=== PATIENT | female | born 1945 | race Caucasian/White ===

== ENCOUNTER 2016-09-18 16:48 | Emergency (ER) | payer MEDICARE, OTHER ==
[~2016-09-18] VITALS: Ht 167.6 cm; Wt 72.7 kg
[~2016-09-18 16:48] MED LIST: AMLO10TA3 PO; ASPI-628 PO; CHOL100043 PO; FAMO40TA72 PO; METO25TA6 PO; MULT-1018 PO; OMEG1CAP25 PO; OMEP20TA24 PO; Oxycodone Hcl PO; PARO20TA57 PO; SIMV40TA5 PO; TAMO10TA4 PO
[2016-09-18 16:56] VITALS: BP 125/79; PULSE 84; RESP 20; O2SAT 96
--- NOTE | 2016-09-18 18:01 | ED.REPORT ---
HPI-Trauma Minor / Fall Date of Service Sep 18, 2016 ED Provider: Dr. Giorgio Prieto D.O. A 71 year old female with a medical history including breast cancer, hypertension, and hyperlipidemia presents to the ED via EMS from [facility] after a mechanical ground level fall just prior to arrival while intoxicated on alcohol. She hit her head and face but did not lose consciousness. She denies abdominal pain or neck pain. The patient was in the ED after a similar fall in March 2016. The patient takes aspirin daily. She is a poor historian because she doesn't remember the whole incident. Nursing Notes Stated Complaint: GLF Chief Complaint: Head, Face, Neck Trauma Nursing Notes Reviewed: Yes Allergies: Coded Allergies: lisinopril (Verified Allergy, Unknown, angioedema, 05/31/14) sertraline (Verified Allergy, Unknown, diarrhea, 09/01/14) Scheduled Amlodipine (Amlodipine) 10 Mg Tablet 5 MG PO DAILY Aspirin (Aspir 81) 81 Mg Tablet. 81 MG PO DAILY Cholecalciferol (Vitamin D3) (Vitamin D) 1,000 Unit Tablet 1,000 UNIT PO DAILY Famotidine (Pepcid) 40 Mg Tablet 40 MG PO HS Metoprolol Tartrate (Metoprolol Tartrate) 25 Mg Tablet 25 MG PO BID Multivitamin (Multi Vitamin Daily) 1 Each Tablet 1 EACH PO DAILY Omeprazole Magnesium (Prilosec Otc) 20 Mg Tablet. 20 MG PO DAILY Paroxetine (Paxil) 20 Mg Tablet 20 MG PO DAILY Simvastatin (Simvastatin) 40 Mg Tablet 40 MG PO HS Tamoxifen Citrate (Tamoxifen Citrate) 10 Mg Tablet 20 MG PO DAILY Scheduled PRN ([Oxycodone Hcl]) 5 MG TABLET 5 MG PO Q4H PRN PRN For Pain Miscellaneous Medications [place]-3 Fatty Acids/Fish Oil ([place] 3 Fish Oil Softgel) 1 Each Capsule.dr 1 EACH PO General Time Seen by MD: 18:00 Chief Complaint Fall, Face injury, Head injury Hx Obtained From: Patient Arrived By: Ambulance Onset Occurred: Just prior to arrival Context of Onset: EtOH use Symptom Duration: Since onset Location: Face Head Quality: Painful Severity: Current: Moderate Severity: Maximum: Moderate Associated with: Denies: Abdominal pain, Fever, Loss of consciousness, Neck pain Pertinent Negative: Relieved by nothing Context: Immunizations Unknown Recent Healthcare: No recent doctor visit Similar Sx Previous: Yes Past Medical History Past Medical History Breast cancer ICU stay in [facility] with intubation attributed to severe allergic reaction to lisinopril and pneumonia (per pt) Ground level falls secondary to alcohol intoxication Hypertension Hyperlipidemia Past Surgical History None reported Smoking History Current Every Day Smoker, Light Tobacco Smoker Social History Other Social History: Lives in [facility] Ambulatory Status Independent Review of Systems Review of Systems Note: + Face pain Constitutional: Denies: Fever Respiratory: Denies: Non-productive cough, Shortness of breath Musculoskeletal: Denies: Neck pain Neurologic: Reports: Headache, Denies: Change LOC Complete sys rev & neg: except as marked. GI: Denies: Abdominal pain, Vomiting Physical Exam Initial Vital Signs Vital Signs (First) Date Time Temp Pulse Resp B/P Pulse Ox O2 Delivery O2 Flow Rate FiO2 09/18/16 16:56 36.7 84 20 125/79 96 Room Air Initial VS: Reviewed ENT: Mucous membranes moist (no septal hematoma noted.) Respiratory: Breath sounds normal, Clear to auscultation, No respiratory distress Cardiovascular: Regular rate & rhythm, Heart sounds normal Abdomen / GI: Soft, Non-tender Skin: Warm, Dry, No cyanosis Neurologic: Alert, Oriented, Nonfocal Psychiatric: Mood/affect normal, Behavior normal, Normal thought content General/Constitutional: Awake, Alert, Cooperative (Pleasant) Smells of alcohol Neck: Atraumatic, No swelling Neck / Muscle Tenderness: Positive: Midline tenderness mid ENT: Airway patent, Mucous membranes moist Ecchymosis and swelling around right eye and onto maxilla Upper Extremity / MS: Atraumatic, Inspection NL Lower Extremity / Pelvis / MS: Atraumatic, Inspection NL Interpretation & Diagnostics FACE CT NO CONTRAST: IMPRESSION: 1. Minimally displaced right nasal bone fracture. 2. Right preorbital/premaxillary soft tissue swelling. Dictated by: Radiologist Katherine Bowles M.D. on 09/18/2016 at 19:13 Lab Results Interpretation Result Diagram: 09/18/16 1904 09/18/16 190 Test 09/18/16 19:04 White Blood Count 6.3th/mm3 (3.8-10.1) Red Blood Count 3.68mil/mm3 (3.90-5.20) Hemoglobin 9.3g/dL (12.0-15.6) Hematocrit 29.9% (35.0-46.0) Mean Corpuscular Volume 81.3fL (81-100) Mean Corpuscular Hemoglobin 25.3pg (27.0-35.0) Mean Corpuscular Hemoglobin Concent 31.1% (32.0-37.0) Red Cell Distribution Width 22.9% (12.3-15.4) Platelet Count 280bil/L (150-400) Neutrophils (%) (Auto) 64.8% (40-74) Lymphocytes (%) (Auto) 21.6% (14-46) Monocytes (%) (Auto) 8.7% (4-12) Eosinophils (%) (Auto) 4.1% (0-5) Basophils (%) (Auto) 0.6% (0-3) Sodium Level 140mEq/L (134-144) Potassium Level 3.7mEq/L (3.5-5.2) Chloride Level 102mEq/L (97-108) Carbon Dioxide Level 20mmol/L (18-29) Blood Urea Nitrogen 23mg/dL (8-27) Creatinine 1.35mg/dL (0.57-1.00) Estimat Glomerular Filtration Rate 55mL/min (>59) Glucose Level 88mg/dL (60-99) Calcium Level 8.8mg/dL (8.5-10.1) Total Bilirubin 0.2mg/dL (0.0-1.2) Aspartate Amino Transf (AST/SGOT) 44U/L (0-50) Alanine Aminotransferase (ALT/SGPT) 20U/L (0-32) Alkaline Phosphatase 78U/L (25-165) Total Protein 6.7g/dL (6.4-8.4) Albumin 3.6g/dL (3.4-5.0) Alcohol, Quantitative 182mg/dL (0-10) CT Head Interpretation IMPRESSION: 1. No acute intracranial abnormalities. 2. Cerebral volume loss and chronic microvascular ischemic changes. Dictated by: Katherine Bowles M.D. on 09/18/2016 at 18:15 Study: Head CT no contrast Interpretation / Wet Read by: Interpret - Radiologist CT C-Spine Interpretation IMPRESSION: 1. No fractures or dislocation. 2. Discectomy and anterior fusion at C4-C7. 3. Degenerative disc disease and facet arthropathy in cervical spine. Dictated by: Katherine Bowles M.D. on 09/18/2016 at 19:17 Study type: CT no contrast Interpretation / Wet Read by: Interpret - Radiologist Re-Eval/Medical Decision Med Decision/Clinical Course Outpatient alcohol detox information provided to Leann nelson by our social studies teacher. She was observed until she was clinically sober. Her son will be taking her back home. I do recommend that she abstain from alcohol consumption and that she follows up as instructed. Referral given regarding the nasal bone fracture. Source of Hx: Old records Re-Evaluation/Progress : Time of Eval: 20:34 Patient Status: Condition improved Re-Evaluation/Progress Note: Discussed with patient lab and CT results, diagnosis, and plan for discharge. Follow-up and return to the ER instructions given. Patient agrees with plan for care and all questions were addressed. Counseled Regarding: Diagnosis, Lab results, Need for follow-up, When/why to return to ED Discharge & Departure Impression: Primary Impression: Head injury Encounter type: initial encounter Qualified Code: S09.90XA - Unspecified injury of head, initial encounter Additional Impressions: Alcohol abuse Nasal bone fracture Encounter type: initial encounter Fracture type: closed Qualified Code: S02.2XXA - Fracture of nasal bones, initial encounter for closed fracture Disposition: Home Discharge Condition All VS Reviewed: Yes Condition: Stable Patient Instructions: Abrasion (ED), Abuse of Alcohol (ED), Minor Head Injury ( ED), Nasal Fracture (ED) Additional Instructions: CT scans show that you broke your nose. Your brain, skull and neck otherwise look good. No other evidence of a facial fracture. Your alcohol level was 180. Do not drink this much alcohol. Never drive while under the influence of alcohol. Our social studies teacher gave you information on detox and rehabilitation. I recommend you follow through with that. Attend Alcoholics Anonymous meetings. Keep antibacterial ointment on your abrasions. Stay with a responsible adult tonight. Do not drive tonight or while under the influence of alcohol. Return if any problems or any worsening symptoms. Take Tylenol as directed for pain. Call your primary care physician tomorrow morning for a follow-up appointment as well. Watch for signs of wound infection. Return if any problems or any worsening symptoms. Referrals: Sourav Ness MD (PCP) Nicholas Mendoza MD Alcoholics Anonymous (AA) Scribe Attestation Portions of this note were transcribed by Rosalba Colbert. I, Dr. Prieto, personally performed the history, physical exam, and medical decision-making; I reviewed and confirmed the accuracy of the information in the transcribed note. Signed by: Anthony Arechiga, 09/18/2016, 20:55 copies to: Nicholas Mendoza MD; Sourav Ness MD ; Alcoholics Anonymous (AA) Giorgio Prieto DO Sep 18, 2016 18:01 ROSALBA COLBERT Sep 18, 2016 18:09
--- NOTE | 2016-09-18 18:19 | DRSVH ---
PROCEDURE: CT BRAIN WITHOUT CONTRAST ([id number]) INDICATIONS: FALL, ETOH TECHNIQUE: Noncontrast 4.5 mm thick angled axial sections acquired from the foramen magnum to the vertex, with c oronal reformats. COMPARISON: [facility], CT, CT BRAIN WO CON, 03/20/2016, 16:08. FINDINGS: Image quality: Excellent. CSF spaces: Basal cisterns are patent. No extra-axial fluid collections. The ventricles are symmet merrick in size and shape. Brain: No intracranial bleeds or masses. There is mild cerebral volume loss for age, with resultant ventricular and sulcal prominence. There are mild periventricular and deep white matter chronic sma ll vessel ischemic changes. There is intracranial internal carotid artery atherosclerosis. Skull and face: Calvarium and visualized facial bones appear intact, without suspicious lesions. Sinuses: Visualized sinuses and mastoids are clear. IMPRESSION: 1. No acute intracranial abnormalities. 2. Cerebral volume loss and chronic microvascular ischemic changes. Dictated by: Katherine Bowles M.D. on 09/18/2016 at 18:15 Approved by: Katherine Bowles M.D. on 09/18/2016 at 18:17
--- NOTE | 2016-09-18 19:18 | DRSVH ---
PROCEDURE: CT FACE WITHOUT CONTRAST ([id number]) INDICATIONS: fall, facial trauma, left orbital swelling, TECHNIQUE: Noncontrast 1.5 mm thick axial images acquired from the mandible through the frontal sinuses, with co magno and sagittal reformatting. For radiation dose reduction, the following was used: automated ex posure control. COMPARISON: None. FINDINGS: Image quality: Excellent. Bones and teeth: Minimally displaced right nasal bone fracture. Orbital jain are intact. Sinus wal ls show no fracture or deformity. Visualized portions of the mandible demonstrate no fractures or valentine bluxation. Zygomatic arches are intact. Pterygoid plates are intact. Visualized portions of the sk ull base and auditory canals are intact. Sinuses: Paranasal sinuses are aerated, without fluid levels, mucosal thickening, or mucoceles. Mas toid air cells are aerated. Soft tissues: There is right periorbital/premaxillary soft tissue swelling. No enlarged lymph nodes. No soft tissue lacerations or debris. Vascular: Visualized vascular structures appear normal in the absence of contrast. Bony vascular fo ramina and canals are intact. IMPRESSION: 1. Minimally displaced right nasal bone fracture. 2. Right preorbital/premaxillary soft tissue swelling. Dictated by: Katherine Bowles M.D. on 09/18/2016 at 19:13 Approved by: Katherine Bowles M.D. on 09/18/2016 at 19:17
--- NOTE | 2016-09-18 19:23 | DRSVH ---
PROCEDURE: CT CERVICAL SPINE WITHOUT CONTRAST ([id number]) INDICATIONS: head trauma, etoh, midline neck tenderness TECHNIQUE: Noncontrast 3 mm thick sections acquired from the skull base to the T4 level. Sagittal and coronal r eformats were then constructed. For radiation dose reduction, the following was used: automated exp osure control, adjustment of mA and/or kV according to patient size. COMPARISON: None. FINDINGS: Image quality: Excellent. Bones: No fractures or dislocations. There is loss of normal cervical or doses. There is grade 1 an terolisthesis of C7 over T1. Discectomy and anterior fusion from C4 through C7. Visualized superior ribs are intact. There is moderate degenerative disease at C3-C4. Bilateral facet arthropathy, most of onset C3-C4 on the right. Soft tissues: Prevertebral soft tissues are normal in thickness. No paravertebral hematomas. No ap ical pneumothoraces. IMPRESSION: 1. No fractures or dislocation. 2. Discectomy and anterior fusion at C4-C7. 3. Degenerative disc disease and facet arthropathy in cervical spine. Dictated by: Katherine Bowles M.D. on 09/18/2016 at 19:17 Approved by: Katherine Bowles M.D. on 09/18/2016 at 19:21
[2016-09-18 19:42] LABS: BASOPHILS % (AUTO) 0.6 % (0-3); EOSINOPHILS % (AUTO) 4.1 % (0-5); MONOCYTES % (AUTO) 8.7 % (4-12); Mean Corpuscular Hemoglobin 25.3 pg (27.0-35.0); Mean Corpuscular Volume 81.3 fL (81-100); NEUTROPHILS % (AUTO) 64.8 % (40-74); Platelet Count 280 bil/L (150-400)
[2016-09-18 20:53] VITALS: BP 145/71; PULSE 75; RESP 20; O2SAT 96
== END 2016-09-18 20:54 | disposition home or self-care (01) ==
LOC: EDBD 16:48 → SED 16:48
DX: S02.2XXA Fracture of nasal bones, initial encounter for closed fracture (principal); W18.30XA Fall on same level, unspecified, initial encounter; Y92.128 Other place in nursing home as the place of occurrence of the external cause; Y93.89 Activity, other specified; Y99.8 Other external cause status; F10.120 Alcohol abuse with intoxication, uncomplicated; I10 Essential (primary) hypertension; E78.5 Hyperlipidemia, unspecified; F17.200 Nicotine dependence, unspecified, uncomplicated; Y90.6 Blood alcohol level of 120-199 mg/100 ml; Z85.3 Personal history of malignant neoplasm of breast; Z79.82 Long term (current) use of aspirin; Z88.8 Allergy status to other drugs, medicaments and biological substances
CPT/HCPCS: 36415; 70450; 70486; 72125; 80053; 85025; 99285; G0480